=== PATIENT | male | born 1950 | race Caucasian/White ===

== ENCOUNTER → 2016-06-14 | Outpatient (CLI) | payer MEDICARE, OTHER ==
[~2016-06-14] MED LIST: CARV6 PO; CEFU250T87 PO; HYDR25TA PO; LEVO25TA9 PO; LISI-660 PO; SIMV-260 PO; TRI115O TP; WARF3TAB29 PO
[2016-06-14 10:15] VITALS: BP 151/95
== END | disposition home or self-care (01) ==
LOC: HBOWC 09:39
PROVIDERS: ATTEND Emergency Medicine
DX: I87.2 Venous insufficiency (chronic) (peripheral) (principal); L97.821 Non-pressure chronic ulcer of other part of left lower leg limited to breakdown of skin; L97.811 Non-pressure chronic ulcer of other part of right lower leg limited to breakdown of skin; I10 Essential (primary) hypertension; L60.3 Nail dystrophy; Z86.718 Personal history of other venous thrombosis and embolism; L84 Corns and callosities
CPT/HCPCS: 97597

== ENCOUNTER → 2016-07-16 | Outpatient (CLI) | payer MEDICARE, OTHER ==
[~2016-07-16] MED LIST changes: -CEFU250T87 PO; -TRI115O TP
[2016-07-16 15:23] VITALS: BP 119/70
== END | disposition home or self-care (01) ==
LOC: HBOWC 12:57
PROVIDERS: ATTEND Emergency Medicine
DX: I87.2 Venous insufficiency (chronic) (peripheral) (principal); L97.821 Non-pressure chronic ulcer of other part of left lower leg limited to breakdown of skin; L97.811 Non-pressure chronic ulcer of other part of right lower leg limited to breakdown of skin; I10 Essential (primary) hypertension; L84 Corns and callosities; L60.3 Nail dystrophy; Z86.718 Personal history of other venous thrombosis and embolism
CPT/HCPCS: 97597

== ENCOUNTER → 2016-07-29 | Outpatient (CLI) | payer MEDICARE, OTHER ==
[2016-07-29 14:03] VITALS: BP 145/84
== END | disposition home or self-care (01) ==
LOC: HBOWC 12:46
PROVIDERS: ATTEND Emergency Medicine
DX: I87.2 Venous insufficiency (chronic) (peripheral) (principal); L97.821 Non-pressure chronic ulcer of other part of left lower leg limited to breakdown of skin; L97.811 Non-pressure chronic ulcer of other part of right lower leg limited to breakdown of skin; L84 Corns and callosities; I10 Essential (primary) hypertension; L60.3 Nail dystrophy
CPT/HCPCS: 97597

== ENCOUNTER → 2016-08-12 | Outpatient (CLI) | payer MEDICARE, OTHER ==
[~2016-08-12] MED LIST changes: +LIDOCAINE HCL 2% 5 ML JELLY TP ONE
[2016-08-12 14:00] VITALS: BP 144/87
== END | disposition home or self-care (01) ==
LOC: HBOWC 13:14
PROVIDERS: ATTEND Emergency Medicine
DX: I87.2 Venous insufficiency (chronic) (peripheral) (principal); L97.821 Non-pressure chronic ulcer of other part of left lower leg limited to breakdown of skin; L97.811 Non-pressure chronic ulcer of other part of right lower leg limited to breakdown of skin; L84 Corns and callosities; L60.3 Nail dystrophy; Z86.718 Personal history of other venous thrombosis and embolism
CPT/HCPCS: 97597

== ENCOUNTER → 2016-08-26 | Outpatient (CLI) | payer MEDICARE, OTHER ==
[~2016-08-26] MED LIST changes: -SIMV-260 PO; +SIMV20 PO
[2016-08-26 13:52] VITALS: BP 137/79
== END | disposition home or self-care (01) ==
LOC: HBOWC 12:51
PROVIDERS: ATTEND Emergency Medicine
DX: I87.2 Venous insufficiency (chronic) (peripheral) (principal); L97.821 Non-pressure chronic ulcer of other part of left lower leg limited to breakdown of skin; L97.811 Non-pressure chronic ulcer of other part of right lower leg limited to breakdown of skin; L97.321 Non-pressure chronic ulcer of left ankle limited to breakdown of skin; L60.3 Nail dystrophy; I10 Essential (primary) hypertension; L84 Corns and callosities; Z86.718 Personal history of other venous thrombosis and embolism
CPT/HCPCS: 97597